=== PATIENT | male | born 1975 | race Hispanic/Latino ===

== ENCOUNTER 2018-01-05 04:58 | Emergency (ER) | payer OTHER ==
[2018-01-05] MEDS ORDERED: MAG HYDROX/AL HYDROX/SIMETH ES 30 ML SUSP UDCUP ONE (05:22)
[2018-01-05] MEDS ORDERED: FAMOTIDINE 20MG TAB 20 MG TAB ONE (05:22)
[2018-01-05] MEDS ORDERED: LIDOCAINE HCL 2% VISCOUS 15 ML UDCUP ONE (05:22)
== END 2018-01-05 05:44 | disposition home or self-care (01) ==
LOC: EDH 04:58
DX: K29.00 Acute gastritis without bleeding (principal); K21.9 Gastro-esophageal reflux disease without esophagitis